=== PATIENT | female | born 1940 | race Hispanic/Latino ===

== ENCOUNTER 2017-10-12 13:12 | Outpatient (CLI) | payer MEDICARE ==
--- NOTE | 2017-10-12 13:35 | XRay Report ---
XRAY RIGHT FOOT THREE VIEWS: 10/12/17 13:12:00 CLINICAL: Right foot pain. FINDINGS: Moderate osteopenia. No fracture or dislocation. Mild posterior tibiotalar osteoarthritis A large plantar calcaneal enthesophyte smaller Achilles enthesophytes. A few benign calcifications but otherwise normal this soft tissues. IMPRESSION: Plantar and Achilles calcaneal enthesopathy. Mild tibiotalar arthritis.
== END 2017-10-12 13:13 | disposition home or self-care (01) ==
LOC: SPVIMAG 13:12
PROVIDERS: ATTEND Orthopaedic Surgery Sports Medicine
DX: M19.071 Primary osteoarthritis, right ankle and foot (principal); M85.871 Other specified disorders of bone density and structure, right ankle and foot; M77.51 Other enthesopathy of right foot and ankle